=== PATIENT | female | born 2005 | race African-American/Black ===

== ENCOUNTER 2024-06-01 17:00 | Emergency (ER) | payer SELFPAY ==
--- NOTE | ~2024-06-01 | XR_ITS ---
EXAMINATION: XR chest 2V Exam Date/Time: 06/01/2024 18:15 CDT HISTORY: sob CHILLS FATIGUE CHEST PAIN X SEVERAL DAYS Comparison: None. RESULT: Lines, tubes, and devices: None. Lungs and pleura: Clear. Cardiomediastinal silhouette: Normal. Other: No acute osseous or upper abdominal finding. IMPRESSION: No acute cardiopulmonary process. Reviewed, dictated and finalized at location K.
--- NOTE | ~2024-06-01 | CT_ITS ---
EXAMINATION: CTA chest PE protocol DATE: 06/01/2024 20:45 INDICATION: cp, sob, tachycardia, covid + TECHNIQUE: Computed tomography angiography (CTA) of the chest was performed with 100 mL Omnipaque-350 intravenous contrast timed to evaluate the pulmonary arteries. Coronal maximum intensity projection 3D-reconstructions were created by the technologist. The dose-length product (DLP) was 870.28 mGy-cm. Automated exposure control and iterative reconstruction technique were employed. COMPARISON: X-ray chest, same date. FINDINGS: Lung parenchyma and airways: Clear. Pleura: Unremarkable. Thoracic inlet, axillae and chest wall: 2.1 cm left thyroid nodule. Thoracic aorta: No significant dilation. No dissection. Mediastinum: Residual thymic tissue. Heart and pericardium: Normal. Coronary artery calcifications: Absent. Upper abdomen: No significant finding. Bones: No acute osseous finding. Pulmonary arteries: Study quality: Examination is limited by significant streak artifact at the super ior vena cava, cardiac motion artifact, mild respiratory motion artifact, and quantum mottle from bod y habitus. Sensitivity for embolism detection is decreased. The next right, no pulmonary emboli detec matt. IMPRESSION: No definite CT evidence of acute pulmonary embolus, noting that sensitivity is decreased by limitatio ns noted above.. No acute process detected in the chest. 2.1 cm left thyroid nodule, recommend outpatient thyroid ultrasound for further characterization. Reviewed, dictated and finalized at location K. IMPRESSION: No definite CT evidence of acute pulmonary embolus, noting that sensitivity is decreased by limitations noted above.. No acute process detected in the chest. 2.1 cm left thyroid nodule, recommend outpatient thyroid ultrasound for further characterization.
--- NOTE | 2024-06-01 17:03 | ECG_ITS ---
Test Date: 2024-06-01 17:08:50 Measurements Intervals [place] Rate: 148 P: 38 W[place]: 141 QRS: 11 QRSD: 72 T: 30 QT: 280 QTc: 439 Interpretive Statements SINUS TACHYCARDIA DELAYED PRECORDIAL R/S TRANSITION BASELINE WANDER- I, II, III, AVL, V6 ABNORMAL ECG No previous ECG available for comparison Electronically Signed On 06-01-2024 20:21:42 CDT by Christian Moses D.O.
[2024-06-01 17:13] VITALS: BP 142/61; PULSE 149; RESP 20; TEMP 37; O2SAT 99
[2024-06-01 17:53] VITALS: BP 126/56; PULSE 144; RESP 17; TEMP 36.7; O2SAT 100
[2024-06-01 18:16] VITALS: BP 112/56; PULSE 135; RESP 20; TEMP 36.8; O2SAT 100
[2024-06-01 18:20] LABS: Basophils Percent Auto 0.2 % (0.2-1.2); Eosinophils Percent Auto 0.1 % (0-4.4); Immature Granulocyte Absolute 0.04 K/mm3 (0.00-0.031); Immature Granulocyte Percent A 0.3 % (0-0.5); Lymphocytes Absolute Auto 0.67 K/mm3 (0.9-3.2); Lymphocytes Percent Auto 5.8 % (18.3-44.2); Mean Corpuscular HGB Conc 28.9 g/dl (32-36); Mean Corpuscular Hemoglobin 21.7 pg (26-34); Mean Corpuscular Volume 75.1 fl (80-100); Monocytes Percent Auto 8.3 % (2.6-8.5); Neutrophils Absolute Auto 9.9 K/mm3 (1.3-6.7); Neutrophils Percent Auto 85.3 % (45.5-73.1); Platelet Count Result 379 k/mm3 (150-375); Red Blood Count 5.06 M/mm3 (4.2-5.4); Red Cell Distribution Width 17.5 % (11.5-14.5); White Blood Count 11.6 K/mm3 (4.5-10.0)
[2024-06-01] MEDS: SODIUM CHLORIDE 0.9% IV 1,000 ML 999 ML IV CONT ×3 (18:25→20:52)
[2024-06-01 18:28] LABS: INR 1.1; Partial Thromboplastin Time 31.1 Seconds (22.3-36.8); Prothrombin Time 14.9 Seconds (11.1-14.7)
[2024-06-01 18:29] LABS: Alanine Aminotransferase 15 U/L (6-35); Albumin Level 4.6 g/dL (3.5-5.1); Alkaline Phosphatase 96 U/L (38-126); Anion Gap 12 mmol/L (4-12); Aspartate Amino Transferase 17 U/L (14-36); Bilirubin,Total 0.3 mg/dL (0.2-1.3); Blood Urea Nitrogen 11 mg/dL (7-17); Calcium 8.9 mg/dL (8.4-10.2); Carbon Dioxide 23 mmol/L (22-30); Chloride 100 mmol/L (98-107); Estimated CRCL calculation 105 ml/min; Estimated Glomerular Filt Rate > 60; Glucose 111 mg/dL (65-110); Potassium 3.7 mmol/L (3.4-5.0); Sodium 135 mmol/L (137-145)
[2024-06-01 18:32] LABS: Hypochromasia 1+; Ovalocytes 1+; Platelet Estimate Slightly Increased (Adequate); Schistocytes None Seen
--- NOTE | 2024-06-01 18:36 | ED.SOB ---
HPI - SOB/Dyspnea General Chief Complaint: Shortness of Breath/Dyspnea Stated Complaint: SOB Time Seen by Provider: 06/01/24 17:57 Source: patient and family Mode of arrival: ambulatory Limitations: no limitations History of Present Illness HPI Narrative: This is a 19-year-old female that presents to the emergency department for cold symptoms present over the last 2 days. Reports fever, cough, congestion, chest pain. Her mother reports she was having difficulty breathing today so she stuck her fingers down her throat and pulled a bunch of mucus out of there. Denies lower extremity edema. Related Data Allergies Allergy/AdvReac Type Severity Reaction Status Date / Time No Known Allergies Allergy Mild Unverified 06/01/24 17:00 Review of Systems Review of Systems: CONSTITUTIONAL: Denies fever ENT: Reports congestion CARDIOVASCULAR: Reports chest pain. Denies edema. RESPIRATORY: Reports cough and dyspnea. All systems reviewed & are unremarkable except as noted in HPI and below PMFSH Past Medical History Medical History (Updated 06/01/24 @ 22:25 by Louise Dsouza PA-C) History of asthma Social History Social History (Updated 06/01/24 @ 18:44 by Louise Dsouza PA-C) Smoking status: Never smoker Exam Narrative: GENERAL: Well-appearing, well-nourished, and in no acute distress. HEAD: Normocephalic, atraumatic. EYES: EOMI. ENT: Nares clear, no rhinorrhea or epistaxis. Mucous membranes moist. Oropharynx without tonsillar hypertrophy exudate or other lesions. Bilateral cerumen impaction NECK: Supple. No adenopathy or masses. CHEST: Clear to auscultation. No respiratory distress. No wheezes rales or rhonchi HEART: Tachycardic, regular rhythm. No murmur heard. Normal peripheral pulses. EXTREMITIES: Normal range of motion. No edema. SKIN: Warm, dry, no rash. NEURO: No focal deficits. Alert and oriented x3. PSYCH: Normal mood and affect Course Course Emergency Course: Patient and family updated on workup and agree with plan of care Vital Signs Vital signs: Vital Signs Temperature 98.6 F 06/01/24 17:13 Pulse Rate 149 H 06/01/24 17:13 Respiratory Rate 20 06/01/24 17:13 Blood Pressure 142/61 H 06/01/24 17:13 Pulse Oximetry 99 07/25/24 17:13 Oxygen Delivery Room Air 06/01/24 17:13 Temperature 98.3 F 06/01/24 18:16 Pulse Rate 135 H 06/01/24 18:16 Respiratory Rate 20 06/01/24 18:16 Blood Pressure 112/56 L 06/01/24 18:16 Pulse Oximetry 100 06/01/24 18:16 Oxygen Delivery Room Air 06/01/24 18:23 MDM - SOB/Dyspnea MDM Narrative Medical decision making narrative: Patient presents to the emergency department for cold symptoms present over the last couple of days. She is afebrile and nontoxic appearing. Heart rate quite elevated upon arrival into the 140s. Sinus tachycardia. This down trended after IV fluid hydration. Oxygen saturations remained normal on room air. Lungs are clear on exam. CBC with leukocytosis to 11.6. Also shows microcytic anemia hemoglobin of 11. Metabolic panel without concerning findings. Patient positive for COVID-19. With symptoms of chest pain, tachycardia and shortness of breath, CTA chest obtained for further evaluation. No evidence of PE or acute cardiopulmonary abnormality. Does show a 2.1 cm left thyroid nodule, recommend outpatient thyroid ultrasound. Patient and family updated on workup and agree with plan of care. Instructed on further symptomatic care of viral infection. She is to follow up with primary provider. She was given warnings to return to the ER Differential Diagnosis Differential diagnosis: Likely community acquired pneumonia, asthma with exacerbation, pulmonary embolism and other (COVID-19) Lab Data Attestation: I reviewed the patient's lab results. 06/01/24 18:14 06/01/24 18:14 Labs: Lab Results 06/01/24 06/01/24 06/01/24 Range/Units 18:12 18:13 18:14 WBC 11.6 H (4.5-
[2024-06-01 18:55] LABS: Influenza A QL RT-PCR Negative (Negative); Influenza B QL RT-PCR Negative (Negative); RSV RNA, RT-PCR Negative (Negative); SARS-CoV-2 RNA PCR Positive (Negative)
[2024-06-01] MEDS: ACETAMINOPHEN 500 MG TABLET 1000 MG PO (19:02)
--- NOTE | 2024-06-01 19:10 | PC.NURSE ---
Assumed care of pt from MILY Ray at this time.
[2024-06-01 19:14] LABS: D Dimer < 0.27 ug/mL (<0.48)
[2024-06-01 19:18] LABS: Troponin I < 0.012 ng/mL (0.000-0.034)
[2024-06-01 21:45] VITALS: BP 140/80; PULSE 105; RESP 17; O2SAT 95
[2024-06-01 22:31] VITALS: BP 150/63; PULSE 113; RESP 23; O2SAT 99
[2024-06-02 03:21] LABS: BEDSIDEPREGUCG Negative
== END 2024-06-01 22:46 | disposition home or self-care (01) ==
PROVIDERS: Student in an Organized Health Care Education/Training Program; Emergency Provider Physician Assistant
DX: U07.1 COVID-19 (principal); E04.1 Nontoxic single thyroid nodule
CPT/HCPCS: 36415; 71046; 71275; 80053; 81025; 84484; 85025; 85380; 85610; 85730; 87637; 93005; 96360; 96361; 99284; A9270; J7030; Q9967